=== PATIENT | male | born 1950 ===

== ENCOUNTER 2024-11-24 12:30 | Inpatient (IN) | payer OTHER ==
[~2024-11-24] VITALS: Ht 170.2 cm; Wt 94.3 kg
[2024-11-24] MEDS ORDERED: MIRTAZAPINE30 M1 PO (12:52)
[2024-11-24] MEDS ORDERED: ZOLOFT100 MG PO (12:54)
[2024-11-24] MEDS ORDERED: RISPERDAL1 MG PO (12:54)
[2024-11-24] MEDS ORDERED: PANTOPRAZOLE SO40 MG PO (12:55)
[2024-11-24] MEDS ORDERED: ATIVAN1 M1 PO (12:56)
[2024-11-24] MEDS ORDERED: GEMFIBROZIL600 MG PO (12:57)
[2024-12-01] MEDS ORDERED: METRONIDAZOLE/SODIUM CHLORIDE 500 MG/100 ML PIGGYBACK IV ONE (06:51)
[2024-12-01] MEDS ORDERED: CEFTRIAXONE SODIUM 2,000 MG VIAL ONE (06:51)
[2024-12-01] MEDS ORDERED: LIDOCAINE HCL 1%/EPINEPHRINE 20ML VIAL IJ ONE (07:42)
[2024-12-01] MEDS ORDERED: BUPIVACAINE HCL/MPF 0.5% 30ML VIAL ONE (07:42)
[2024-12-01] MEDS ORDERED: SUGAMMADEX SODIUM 200 MG/2 ML VIAL IV ONE (08:15)
[2024-12-01] MEDS ORDERED: RINGERS SOLUTION,LACTATED 1,000 ML IV SCH (10:15)
[2024-12-01] MEDS ORDERED: DEXTROSE 50 % IN WATER 0.5 G/ML DISP.SYRIN IV PRN (10:15)
[2024-12-01] MEDS ORDERED: ONDANSETRON HCL 2 MG/ML VIAL IV PRN (10:15)
[2024-12-01] MEDS ORDERED: MORPHINE SULFATE 4 MG/ML CARTRIDGE IV PRN (10:15)
[2024-12-01] MEDS ORDERED: OxyCODONE HCL 5 MG TABLET (ROXICODONE) PO PRN (10:15)
[2024-12-01] MEDS ORDERED: ENALAPRILAT DIHYDRATE 1.25 MG/ML VIAL IV ONE (10:29)
[2024-12-01] MEDS ORDERED: LABETALOL HCL 100 MG/20 ML ML ONE ×3 (10:31→16:09)
[2024-12-01] MEDS ORDERED: LABETALOL HCL 20MG/4ML SYRINGE IV STA (12:53)
[2024-12-01] MEDS ORDERED: SIMETHICONE 125 MG CAPSULE PO SCH (13:00)
[2024-12-01] MEDS ORDERED: ENALAPRILAT DIHYDRATE 1.25 MG/ML VIAL IV PRN (13:00)
[2024-12-01] MEDS ORDERED: HYOSCYAMINE SULFATE 0.125 MG TAB.SUBL SL SCH (13:00)
[2024-12-01 13:30] LABS: BASO % 0.1 % (0.1-1.2); EOS # 0.01 (0.04-0.54); EOS % 0.1 % (0.7-7.0); LYMPH # 0.78 (1.18-3.74); LYMPH % 5.2 % (19.3-53.1); MEAN PLATELET VOLUME 10.10 fl (9.4-12.4); MONO # 0.78 (0.24-0.82); MONO % 5.2 % (4.7-12.5); NEUT # 13.41 (1.56-6.13); NEUT % 89.1 % (34.0-71.1); RED CELL DISTRIBUTION WIDTH 12.7 % (11.6-14.4)
[2024-12-01] MEDS ORDERED: ACETAMINOPHEN 500 MG GEL..CAP PO SCH (14:00)
[2024-12-01 14:08] LABS: BUN CREA RATIO 14.0 (7.0-25.0); CREATININE SERUM 0.87 mg/dL (0.70-1.30); GFR 86.26; GLUCOSE FASTING 198.0 mg/dL (65-100); OSMOLALITY SERUM 281.0 MOSM/KG (275-295)
[2024-12-01] MEDS ORDERED: ENALAPRILAT DIHYDRATE 1.25 MG/ML VIAL IV STA (16:10)
[2024-12-01] MEDS ORDERED: AMLODIPINE BESYLATE 5 MG TABLET PO STA (16:10)
[2024-12-01] MEDS ORDERED: LABETALOL HCL 100 MG/20 ML ML IV STA (16:11)
[2024-12-01] MEDS ORDERED: CELECOXIB 200 MG CAPSULE PO SCH (17:00)
[2024-12-01] MEDS ORDERED: METOCLOPRAMIDE HCL 5 MG/ML VIAL IV SCH (17:00)
[2024-12-01] MEDS ORDERED: GABAPENTIN 300 MG CAPSULE PO SCH (17:00)
[2024-12-01 17:24] VITALS: BP 174/91; O2SAT 95
[2024-12-01] MEDS ORDERED: RISPERIDONE 1 MG TABLET PO SCH (21:00)
[2024-12-01] MEDS ORDERED: PATIENTS OWN MEDICATION (MEDICAMENTO EN PISO) PO SCH (21:00)
[2024-12-01] MEDS ORDERED: FAMOTIDINE/PF 20 MG/2 ML VIAL IV PUSH SCH (21:00)
[2024-12-02 00:26] VITALS: BP 150/70; O2SAT 95
[2024-12-02 06:18] LABS: BASO % 0.2 % (0.1-1.2); EOS # 0.05 (0.04-0.54); EOS % 0.3 % (0.7-7.0); LYMPH # 1.32 (1.18-3.74); LYMPH % 8.9 % (19.3-53.1); MEAN PLATELET VOLUME 10.80 fl (9.4-12.4); MONO # 0.95 (0.24-0.82); MONO % 6.4 % (4.7-12.5); NEUT # 12.46 (1.56-6.13); NEUT % 83.9 % (34.0-71.1); RED CELL DISTRIBUTION WIDTH 12.4 % (11.6-14.4)
[2024-12-02 06:52] LABS: BUN CREA RATIO 12.0 (7.0-25.0); CREATININE SERUM 0.76 mg/dL (0.70-1.30); GFR 100.82; GLUCOSE FASTING 150.0 mg/dL (65-100); OSMOLALITY SERUM 272.0 MOSM/KG (275-295)
[2024-12-02 07:30] VITALS: BP 159/67; O2SAT 97
[2024-12-02] MEDS ORDERED: SERTRALINE HCL 100 MG TABLET PO SCH (09:00)
[2024-12-02] MEDS ORDERED: LACTOBACILLUS ACIDOPHILUS 1 CAP CAP PO SCH (09:00)
[2024-12-02] MEDS ORDERED: LACTULOSE 20 G/30 ML BLIST.PACK PO SCH (09:00)
[2024-12-02] MEDS ORDERED: IRBESARTAN 150 MG TABLET PO SCH (10:41)
[2024-12-02] MEDS ORDERED: ENOXAPARIN SODIUM 40 MG/0.4 ML SYRINGE SUBCUTANEO SCH (17:00)
[2024-12-02 18:25] VITALS: BP 125/64; O2SAT 98
[2024-12-03 00:38] VITALS: BP 127/70; O2SAT 98
[2024-12-03 06:14] LABS: BASO % 0.3 % (0.1-1.2); EOS # 0.25 (0.04-0.54); EOS % 2.3 % (0.7-7.0); LYMPH # 1.76 (1.18-3.74); LYMPH % 16.0 % (19.3-53.1); MEAN PLATELET VOLUME 10.30 fl (9.4-12.4); MONO # 0.75 (0.24-0.82); MONO % 6.8 % (4.7-12.5); NEUT # 8.14 (1.56-6.13); NEUT % 74.1 % (34.0-71.1); RED CELL DISTRIBUTION WIDTH 13.1 % (11.6-14.4)
[2024-12-03 07:01] LABS: BUN CREA RATIO 15.0 (7.0-25.0); CREATININE SERUM 0.86 mg/dL (0.70-1.30); GFR 87.41; GLUCOSE FASTING 107.0 mg/dL (65-100); OSMOLALITY SERUM 287.0 MOSM/KG (275-295)
[2024-12-03 08:25] VITALS: BP 148/70; O2SAT 98
[2024-12-03] MEDS ORDERED: ENOXAPARIN SODIUM 40 MG/0.4 ML SYRINGE SUBCUTANEO SCH (09:00)
[2024-12-03] MEDS ORDERED: SOD FERRIC GLUC COMPLX/SUCROSE 62.5 MG in 0.9 % SODIUM CHLORIDE 50 ML IV NR (10:00)
[2024-12-03 13:01] LABS: BASO % 0.2 % (0.1-1.2); EOS # 0.25 (0.04-0.54); EOS % 2.4 % (0.7-7.0); LYMPH # 1.50 (1.18-3.74); LYMPH % 14.7 % (19.3-53.1); MEAN PLATELET VOLUME 10.80 fl (9.4-12.4); MONO # 0.72 (0.24-0.82); MONO % 7.0 % (4.7-12.5); NEUT # 7.69 (1.56-6.13); NEUT % 75.3 % (34.0-71.1); RED CELL DISTRIBUTION WIDTH 13.2 % (11.6-14.4)
[2024-12-03] MEDS ORDERED: AMINOCAPROIC ACID 250 MG/ML VIAL IV STA (13:15)
[2024-12-03] MEDS ORDERED: AMINOCAPROIC ACID 250 MG/ML VIAL IV SCH (15:00)
[2024-12-03 16:00] VITALS: BP 113/69; O2SAT 98
[2024-12-03] MEDS ORDERED: AMINO ACIDS/PROTEIN HYDROLYS 30 ML BLIST.PACK PO SCH (17:00)
[2024-12-04 01:03] VITALS: BP 110/66; O2SAT 97
[2024-12-04 07:38] LABS: BASO % 0.5 % (0.1-1.2); EOS # 0.49 (0.04-0.54); EOS % 5.7 % (0.7-7.0); LYMPH # 1.58 (1.18-3.74); LYMPH % 18.4 % (19.3-53.1); MEAN PLATELET VOLUME 11.20 fl (9.4-12.4); MONO # 0.67 (0.24-0.82); MONO % 7.8 % (4.7-12.5); NEUT # 5.78 (1.56-6.13); NEUT % 67.0 % (34.0-71.1); RED CELL DISTRIBUTION WIDTH 13.4 % (11.6-14.4)
[2024-12-04 08:00] VITALS: BP 131/72; O2SAT 98
[2024-12-04 08:09] LABS: BUN CREA RATIO 20.0 (7.0-25.0); CREATININE SERUM 0.66 mg/dL (0.70-1.30); GFR 118.64; GLUCOSE FASTING 99.0 mg/dL (65-100); OSMOLALITY SERUM 281.0 MOSM/KG (275-295)
[2024-12-04] MEDS ORDERED: SOD FERRIC GLUC COMPLX/SUCROSE 62.5 MG in 0.9 % SODIUM CHLORIDE 50 ML IV SCH (09:00)
== END 2024-12-04 14:55 | disposition home or self-care (01) | DRG 330 ==
LOC: EDUNIT# 12:30 → O/R 12-01 06:00 → SURH 12-01 08:45
PROVIDERS: Internal Medicine Geriatric Medicine; ADMIT Colon & Rectal Surgery; ATTEND Colon & Rectal Surgery
PROC: 0DTN4ZZ Resection of Sigmoid Colon, Percutaneous Endoscopic Approach (ICD-10-PCS; principal; 2024-12-02)
PROC: 0DBP4ZZ Excision of Rectum, Percutaneous Endoscopic Approach (ICD-10-PCS; 2024-12-02)
PROC: 0DJD8ZZ Inspection of Lower Intestinal Tract, Via Natural or Artificial Opening Endoscopic (ICD-10-PCS; 2024-12-02)
PROC: 07BB4ZZ Excision of Mesenteric Lymphatic, Percutaneous Endoscopic Approach (ICD-10-PCS; 2024-12-02)
DX: C18.7 Malignant neoplasm of sigmoid colon (principal); E87.1 Hypo-osmolality and hyponatremia; I10 Essential (primary) hypertension; F41.0 Panic disorder [episodic paroxysmal anxiety]

== ENCOUNTER 2024-11-30 08:00 | Day surgery (SDC) | payer OTHER ==
[~2024-11-30 08:00] MED LIST: ATIVAN1 M1 PO; GEMFIBROZIL600 MG PO; MIRTAZAPINE30 M1 PO; PANTOPRAZOLE SO40 MG PO; RISPERDAL1 MG PO; ZOLOFT100 MG PO
[2024-11-30] MEDS ORDERED: ENALAPRILAT DIHYDRATE 2.5 MG/2 ML VIAL IV STA (11:35)
[2024-11-30] MEDS ORDERED: DIPHENHYDRAMINE HCL 50 MG/ML VIAL 1ML IV ONE (11:45)
[2024-11-30] MEDS ORDERED: MIDAZOLAM HCL 2 MG/2 ML VIAL IV ONE (11:45)
[2024-11-30] MEDS ORDERED: fentaNYL CITRATE 50 MCG/ML AMPUL IV PUSH ONE (11:45)
== END 2024-11-30 12:40 | disposition home or self-care (01) ==
LOC: AMB-ENDOS 08:00
PROVIDERS: ATTEND Colon & Rectal Surgery
DX: D37.4 Neoplasm of uncertain behavior of colon (principal); Z85.038 Personal history of other malignant neoplasm of large intestine